=== PATIENT | female | born 1995 | race Caucasian/White ===

== ENCOUNTER 2017-03-03 03:27 | Emergency (ER) | payer OTHER ==
--- NOTE | 2017-03-03 03:29 | EDPHY ---
H & P HPI/ROS: HPI CHIEF COMPLAINT: Alcohol intoxication, cocaine use, MDMA, can't walk HISTORY OF PRESENT ILLNESS: This patient very pleasant 21-year-old female she presents emergency room by private vehicle with her boyfriend after they went out to a concert earlier this evening she endorses doing MDMA, cocaine and alcohol this evening. After the concert she went to a friend's house and had more alcohol. She started feeling weird was unable to walk. Her boyfriend brought her here to the emergency room by private vehicle. She has not any vomiting. She complains of total body weakness. Denies chest pain or shortness of breath. Denies headache. Feels intoxicated. Upon arrival here in the emergency room she does appear intoxicated smells of alcohol. Past Medical History: Denies medical history Past Surgical History: Denies surgical history Social History: Endorses cocaine frequently, tonight did MDMA, alcohol Family History: Noncontributory ROS REVIEW OF SYSTEMS: A comprehensive 10 point review of systems is otherwise negative aside from elements mentioned in the history of present illness. Exam Constitutional sleepy, intoxication, smells of alcohol triage nursing summary reviewed, vital signs reviewed, awake/alert. Eyes normal conjunctivae and sclera, EOMI, PERRLA. 4 mm reactive to light equal. HENT normal inspection, atraumatic, moist mucus membranes, no epistaxis, neck supple/ no meningismus, no raccoon eyes. Respiratory clear to auscultation bilaterally, normal breath sounds, no respiratory distress, no wheezing. Cardiovascular rate normal, regular rhythm, no murmur, no edema, distal pulses normal. Gastrointestinal soft, non-tender, no rebound, no guarding, normal bowel sounds, no distension, no pulsatile mass. Genitourinary no CVA tenderness. Musculoskeletal no midline vertebral tenderness, full range of motion, no calf swelling, no tenderness of extremities, no meningismus, good pulses, neurovascularly intact. Skin pink, warm, & dry, no rash, skin atraumatic. Neurologic horizontal beating nystagmus consistent with acute alcohol intoxication, sleepy, slight slurred speech. Psychiatric normal mood/affect. Heme/Lymph/Immune no lymphadenopathy. 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 Monitor for sobriety or worsening of condition. Re-evaluation: EKG interpretation by me on record in [facility] [place] system. Impression and time of EKG 3:30 a.m., sinus tachycardia rate of 114. I do not appreciate acute ischemic change. Specifically no ST elevation, ST depression, T-wave abnormalities prolonged intervals. 0547: Re-examination at this time patient resting comfortably ambulated well no acute distress. Clinically sober. Here with polysubstance abuse including alcohol intoxication. Much improved now. Requesting discharge. Source: Patient - Medical/Surgical History Hx Asthma: No Hx Chronic Respiratory Disease: No Hx Diabetes: No Hx Cardiac Disease: No Hx Renal Disease: No Hx Cirrhosis: No Hx Alcoholism: No Hx HIV/AIDS: No Hx Splenectomy or Spleen Trauma: No Other PMH: Anxiety - Social History Smoking Status: Light smoker Constitutional: Initial Vital Signs Heart Rate 120 H 03/03/17 03:36 Respiratory Rate 18 03/03/17 03:36 Blood Pressure 152/106 H 03/03/17 03:36 O2 Sat (%) 99 03/03/17 03:36 O2 Delivery Mode Room Air Allergies/Adverse Reactions: No Known Allergies Allergy (Unverified 03/03/17 03:36) Home Medications: Medication Instructions Recorded lamoTRIgine [LaMICtal] 25 mg PO DAILY #14 tab 06/27/14 Medical Decision Making - Data Points Laboratory Results: Laboratory Results 03/03/17 03:40 03/03/17 03:40 03/03/17 03/03/17 03/03/17 04:20 03:40 03:40 WBC 6.21 10^3/uL 10^3/uL (3.80-9.50) RBC 5.15 10^6/uL 10^6/uL (4.18-5.33) Hgb 16.5 g/dL H g/dL (12.6-16.3) Hct 46.2 % % (38.0-47.0) MCV 89.7 fL fL (81.5-99.8) MCH 32.0 pg pg (27.9-34.1) MCHC 35.7 g/dL g/dL (32.4-36.7) RDW 12.6 % % (11.5-15.2) Plt Count 284 10^3/uL 10^3/uL (150-400) MPV 9.5 fL fL (8.7-11.7) Neut % (Auto) 46.8 % % (39.3-74.2) Lymph % (Auto) 39.1 % % (15.0-45.0) [place] % (Auto) 6.8 % % (4.5-13.0) Eos % (Auto) 6.3 % % (0.6-7.6) Baso % (Auto) 0.8 % % (0.3-1.7) Nucleat RBC Rel Count 0.0 % % (0.0-0.2) Absolute Neuts (auto) 2.91 10^3/uL 10^3/uL (1.70-6.50) Absolute Lymphs (auto) 2.43 10^3/uL 10^3/uL (1.00-3.00) Absolute Monos (auto) 0.42 10^3/uL 10^3/uL (0.30-0.80) Absolute Eos (auto) 0.39 10^3/uL 10^3/uL (0.03-0.40) Absolute Basos (auto) 0.05 10^3/uL 10^3/uL (0.02-0.10) Absolute Nucleated RBC 0.00 10^3/uL 10^3/uL (0-0.01) Immature Gran % 0.2 % % (0.0-1.1) Immature Gran # 0.01 10^3/uL 10^3/uL (0.00-0.10) Sodium 144 mEq/L mEq/L (134-144) Potassium 4.1 mEq/L mEq/L (3.5-5.2) Chloride 107 mEq/L mEq/L (97-110) Carbon Dioxide 19 mEq/l L mEq/l (22-31) Anion Gap 18 mEq/L H mEq/L (8-16) BUN 8 mg/dL mg/dL (7-23) Creatinine 0.7 mg/dL mg/dL (0.6-1.0) Estimated GFR > 60 Glucose 96 mg/dL mg/dL (70-100) Calcium 9.6 mg/dL mg/dL (8.5-10.4) Urine Opiates Screen NEGATIVE (NEGATIVE) Urine Barbiturates NEGATIVE (NEGATIVE) Ur Phencyclidine Scrn NEGATIVE (NEGATIVE) Ur Amphetamine Screen NEGATIVE (NEGATIVE) U Benzodiazepines Scrn NEGATIVE (NEGATIVE) Urine Cocaine Screen NON-NEGATIVE H (NEGATIVE) U Marijuana (THC) Screen NEGATIVE (NEGATIVE) Ethyl Alcohol 281 mg/dL H mg/dL (0-10) Medications Given: Discontinued Medications Sodium Chloride (Ns) 1,000 mls @ 0 mls/hr IV ONCE ONE PRN Reason: Wide Open Stop: 03/03/17 03:35 Last Admin: 03/03/17 03:45 Dose: 1,000 mls Departure - Departure Disposition: Home, Routine, Self-Care Clinical Impression: Polysubstance abuse Condition: Good Instructions: Polysubstance Abuse (ED) Referrals: Patient,NotPresent [Unknown] - As per Instructions
[2017-03-03] MEDS ORDERED: NS 1,000 ML IV ONE (03:34)
--- NOTE | 2017-03-03 03:40 | CPEKG ---
Heart Rate: 114 RR Interval: 526 P-R Interval: 156 QRSD Interval: 94 QT Interval: 344 QTC Interval: 474 P [place]: 72 QRS [place]: 84 T Wave [place]: 13 EKG Severity - ABNORMAL ECG - EKG Impression: SINUS TACHYCARDIA EKG Impression: AISLINN, CONSIDER BIATRIAL ABNORMALITIES EKG Impression: CONSIDER RIGHT VENTRICULAR HYPERTROPHY EKG Impression: PROBABLE LEFT VENTRICULAR HYPERTROPHY Electronically Signed By: Romeo Matthews 03-Mar-2017 06:44:44
[2017-03-03 04:01] LABS: % IMMATURE GRANULYOCYTES 0.2 % (0.0-1.1); ABSOLUTE IMMATURE GRANULOCYTES 0.01 10^3/uL (0.00-0.10); ADD DIFF? NO; ADD MORPH? NO; ADD SCAN? NO; ATYPICAL LYMPHOCYTE FLAG 30 (0-99); FRAGMENT RBC FLAG 0 (0-99); HEMATOCRIT 46.2 % (38.0-47.0); HEMOGLOBIN 16.5 g/dL (12.6-16.3); LEFT SHIFT FLG 0 (0-99); LIPEMIA HEMOLYSIS FLAG 90 (0-99); MEAN CELL HEMOGLOBIN CONCENTR. 35.7 g/dL (32.4-36.7); MEAN CELL VOLUME 89.7 fL (81.5-99.8); MEAN PLATELET VOLUME 9.5 fL (8.7-11.7); PLATELET CLUMPS FLAG 10 (0-99); PLATELET COUNT 284 10^3/uL (150-400); RED BLOOD CELL COUNT 5.15 10^6/uL (4.18-5.33); RED CELL DISTRIBUTION WIDTH 12.6 % (11.5-15.2)
[2017-03-03 04:13] LABS: POTASSIUM 4.1 mEq/L (3.5-5.2)
[2017-03-03 04:14] LABS: ANION GAP 18 mEq/L (8-16); CALCIUM 9.6 mg/dL (8.5-10.4); CARBON DIOXIDE 19 mEq/l (22-31); CHLORIDE 107 mEq/L (97-110); CREATININE 0.7 mg/dL (0.6-1.0); ETHANOL SERUM 281 mg/dL (0-10); GLOMERULAR FILTRATION RATE > 60; GLUCOSE 96 mg/dL (70-100); SODIUM 144 mEq/L (134-144)
[2017-03-03 04:50] VITALS: RESP 14
[2017-03-03 05:54] VITALS: BP 119/64; PULSE 88; TEMP 98.2; O2SAT 95
== END 2017-03-03 05:52 | disposition home or self-care (01) ==
DX: F19.10 Other psychoactive substance abuse, uncomplicated (principal); F17.200 Nicotine dependence, unspecified, uncomplicated
CPT/HCPCS: 80305; G0480

== ENCOUNTER 2017-04-20 02:05 | Emergency (ER) | payer OTHER ==
[2017-04-20 03:07] LABS: COLOR YELLOW; LEUKOCYTE ESTERASE,URINE NEGATIVE (NEGATIVE); NITRITE,URINE NEGATIVE (NEGATIVE)
[2017-04-20 03:12] LABS: MUCUS TRACE /lpf (NONE-1+)
--- NOTE | 2017-04-20 03:33 | EDPHY ---
H & P Stated Complaint: LLQ AND L FLANK PAIN. FREQUENCY Time Seen by Provider: 04/20/17 02:43 HPI/ROS: Chief Complaint: Abdominal pain HPI: 21-year-old female's been having worsening left lower quadrant pain over the course of the evening. For she thought was indigestion. It is radiating to her low back. Has had some increase with urination and burning with urination. Last menstrual period was 2 and half weeks ago and was normal. She is . Does not believe she is . She actually states that after arriving in the ED her pain is now better without any treatment. She also states she has been constipated. No fevers or chills. No nausea or vomiting ROS: 10 point Review of Systems is negative except as noted in the HPI. PMH: Denies Social History: Occasional smoking, daily alcohol, no recreational drug use Family History: non-contributory Physical Exam: Gen: Awake, Alert, No Distress HEENT: Nose: no rhinorrhea Eyes: PERRLA, EOMI Mouth: Moist mucosa Neck: Supple, no JVD Chest: nontender, lungs clear to auscultation Heart: S1, S2 normal, no murmur Abd: Soft, very mild left lower quadrant, mild left adnexal tenderness, no fullness or mass, there is palpable constipation in the descending colon, no guarding Back: no CVA tenderness, no midline tenderness Ext: no edema, non-tender Skin: no rash Neuro: CN II-XII intact, Sensation grossly intact, Strength 5/5 in bilateral upper and lower extremities - Personal History LMP (Females 10-55): 15-21 Days Ago Current Tetanus/Diphtheria Vaccine: Yes Current Tetanus Diphtheria and Acellular Pertussis (TDAP): Yes - Medical/Surgical History Hx Asthma: No Hx Chronic Respiratory Disease: No Hx Diabetes: No Hx Cardiac Disease: No Hx Renal Disease: No Hx Cirrhosis: No Hx Alcoholism: No Hx HIV/AIDS: No Hx Splenectomy or Spleen Trauma: No Other PMH: Anxiety - Social History Smoking Status: Light smoker Constitutional: Initial Vital Signs Temperature (C) 37.2 C 04/20/17 02:27 Heart Rate 64 04/20/17 02:27 Respiratory Rate 18 04/20/17 02:27 Blood Pressure 135/74 H 04/20/17 02:27 O2 Sat (%) 98 04/20/17 02:27 O2 Delivery Mode Room Air Allergies/Adverse Reactions: No Known Allergies Allergy (Unverified 04/20/17 02:30) Home Medications: Medication Instructions Recorded NK [No Known Home Meds] 04/20/17 Medical Decision Making ED Course/Re-evaluation: 21-year-old female with a very soft benign abdomen with had earlier episodes of left-sided abdominal pain which is now resolved. She is not . Urinalysis is negative. She has soft benign abdomen at this time. I suspect there is some constipation and possibly ovarian cyst. Plain as she is describing it does not sound like ovarian torsion but this cannot be ruled out at this time. Her pain is resolved. She will be discharged with instructions to return to the emergency department if her pain comes back. Otherwise she will follow up with OBGYN. - Data Points Laboratory Results: 04/20/17 04/20/17 02:56 02:56 Urine Color YELLOW Urine Appearance HAZY Urine pH 5.0 (5.0-7.5) Ur Specific Shell 1.010 (1.002-1.030) Urine Protein NEGATIVE (NEGATIVE) Urine Ketones NEGATIVE (NEGATIVE) Urine Blood NEGATIVE (NEGATIVE) Urine Nitrate NEGATIVE (NEGATIVE) Urine Bilirubin NEGATIVE (NEGATIVE) Urine Urobilinogen NEGATIVE EU EU (0.2-1.0) Ur Leukocyte Esterase NEGATIVE (NEGATIVE) Urine RBC 1-3 /hpf /hpf (0-3) Urine WBC 1-3 /hpf /hpf (0-3) Ur Epithelial Cells 3+ /lpf H /lpf (NONE-1+) Urine Mucus TRACE /lpf /lpf (NONE-1+) Urine Glucose NEGATIVE (NEGATIVE) Urine Test NEGATIVE Departure - Departure Disposition: Home, Routine, Self-Care Clinical Impression: Abdominal pain Condition: Good Instructions: Abdominal Pain (ED) Additional Instructions: Return to the Emergency Department if your pain returns, you have fever, vomiting, or other concerns. Follow-up with you LVN LPN for further evaluation of a possible ovarian cyst. Referrals: Trang Yang MD [Medical Doctor] - As per Instructions
[2017-04-20 03:44] VITALS: BP 126/81; PULSE 67; RESP 16; TEMP 98.2; O2SAT 99
== END 2017-04-20 03:43 | disposition home or self-care (01) ==
DX: R10.32 Left lower quadrant pain (principal); F17.200 Nicotine dependence, unspecified, uncomplicated